=== PATIENT | male | born 1975 | race American Indian/Alaskan Native ===

== ENCOUNTER 2016-07-21 17:40 | Emergency (ER) | payer MEDICAID ==
[2016-07-21 17:59] VITALS: BP 148/79
--- NOTE | 2016-07-21 18:20 | EDM.PDOC ---
ED HPI RENAL/ - General Chief Complaint: Genitourinary Problem Stated Complaint: URINATING BLOOD Time Seen by Provider: 07/21/16 18:15 Source of Information: Reports: Patient History Limitations: Reports: No limitations - History of Present Illness INITIAL COMMENTS - FREE TEXT/NARRATIVE: Pt states that he has been having bloody urination since yesterday. States that it is a small amount that turns the toilet pink. C/o burning with urination. no other complaints of pain. Symptom Onset Date: 07/20/16 Timing/Duration: Reports: Waxing/waning Location: Reports: urethral Quality: Reports: burning Severity: moderate Worsens with: Reports: urinating Associated Symptoms: Reports: no other symptoms, burning - Related Data Allergies/ADRs: Allergies Allergy/AdvReac Type Severity Reaction Status Date / Time No Known Allergies Allergy Verified 07/21/16 18:02 Home Meds: Home Meds . [No Known Home Meds] 07/21/16 [History] Past Medical History - Past Surgical History HEENT Surgical History: Reports: Other (see below) Other HEENT Surgeries/Procedures: wisdom teeth Musculoskeletal Surgical History: Reports: Other (see below) Other Musculoskeletal Surgeries/Procedures:: right ankle fracture. jaw broken Social & Family History - Tobacco Use Smoking Status *Q: Current Every Day Smoker Years of Tobacco use: 30 Packs/Tins Daily: 1 Second Hand Smoke Exposure: Yes - Caffeine Use Caffeine Use: Reports: Energy drinks, Soda, Tea - Alcohol Use Days Per Week of Alcohol Use: 1 Number of Drinks Per Day: 20 Total Drinks Per Week: 20 - Recreational Drug Use Recreational Drug Use: Yes Recreational Drug Type: Reports: Marijuana/Hashish ED ROS GENERAL - Review of Systems Review Of Systems: See Below : Reports: dysuria, hematuria ED EXAM, RENAL/ - Physical Exam Exam: See Below Exam Limited By: No limitations General Appearance: alert, WD/WN, no apparent distress (Male) Exam: No hernia, Circumcised, Scrotum tenderness (L), Scrotum tenderness (R), Urethral discharge Course - Vital Signs Last Recorded V/S: Last Vital Signs Temp 98.4 F 07/21/16 17:56 Pulse 76 07/21/16 17:56 Resp 16 07/21/16 17:56 BP 148/79 H 07/21/16 17:56 Pulse Ox 97 07/21/16 17:56 - Orders/Labs/Meds Orders: Active Orders 24 hr Category Date Time Status CHLAMYDIA TRACHOMATIS/GC AMPLF Stat Lab 07/21/16 18:54 Ordered Labs: Laboratory Tests 07/21/16 07/21/16 Range/Units 18:00 18:00 Urine Color Light yellow (YELLOW) Urine Appearance Slightly cloudy (CLEAR) Urine pH 5.5 (5.0-9.0) Ur Specific [place] <= 1.005 (1.005-1.030) Urine Protein Negative (NEGATIVE) Urine Glucose (UA) Negative (NEGATIVE) Urine Ketones Negative (NEGATIVE) Urine Occult Blood Moderate H (NEGATIVE) Urine Nitrite Negative (NEGATIVE) Urine Bilirubin Negative (NEGATIVE) Urine Urobilinogen 0.2 (0.2-1.0) mg/dL Ur Leukocyte Esterase Negative (NEGATIVE) Urine RBC 0-5 /HPF Urine WBC Not seen (0-5/HPF) /HPF Ur Epithelial Cells Rare /HPF Urine Opiates Screen Negative (NEGATIVE) Ur Oxycodone Screen Negative (NEGATIVE) Urine Methadone Screen Negative (NEGATIVE) Ur Barbiturates Screen Negative (NEGATIVE) U Tricyclic Antidepress Negative (NEGATIVE) Ur Phencyclidine Scrn Negative (NEGATIVE) Ur Amphetamine Screen Negative (NEGATIVE) U Methamphetamines Scrn Negative (NEGATIVE) Urine MDMA Screen Negative (NEGATIVE) U Benzodiazepines Scrn Negative (NEGATIVE) Urine Cocaine Screen Negative (NEGATIVE) U Marijuana (THC) Screen Positive H (NEGATIVE) Meds: Medications Discontinued Medications Generic Name Dose Route Start Last Admin Trade Name Freq PRN Reason Stop Dose Admin Azithromycin 1,000 mg 07/21/16 18:38 07/21/16 18:52 Zithromax PO 07/21/16 18:39 1,000 mg ONETIME ONE Administration Ceftriaxone Sodium 250 mg/ 0 mg 07/21/16 18:42 07/21/16 18:53 Lidocaine HCl 0.9 ml IM 07/21/16 18:43 1 inj ONETIME ONE Administration Ibuprofen 800 mg 07/21/16 18:38 07/21/16 18:53 Motrin PO 07/21/16 18:39 800 mg ONETIME ONE Administration Departure - Departure Time of Disposition: 18:57 Disposition: Home, Self-Care 01 Condition: good Clinical Impression: Urethritis Instructions: Urethritis, Adult Forms: ED Department Discharge Additional Instructions: Take the antibiotic until gone. take motrin for the pain. follow up in clinic in 1 week if not better. return for any worsening symptoms. - My Orders Last 24 Hours: My Active Orders 07/21/16 18:54 CHLAMYDIA TRACHOMATIS/GC AMPLF Stat - Assessment/Plan Last 24 Hours: My Active Orders 07/21/16 18:54 CHLAMYDIA TRACHOMATIS/GC AMPLF Stat
[2016-07-21] MEDS ORDERED: Azithromycin 250 MG Tab PO ONE (18:38)
[2016-07-21] MEDS ORDERED: Ibuprofen 800 MG Tab PO ONE (18:38)
[2016-07-21] MEDS ORDERED: cefTRIAXone 250 MG, Lidocaine 1% 0.9 ML IM ONE ×2 (18:42)
== END 2016-07-21 19:08 | disposition home or self-care (01) ==
LOC: DL.ED 17:40
DX: N34.2 Other urethritis (principal); F17.200 Nicotine dependence, unspecified, uncomplicated; F12.90 Cannabis use, unspecified, uncomplicated; Z72.89 Other problems related to lifestyle
CPT/HCPCS: 80305; 81001; 87491; 87591; 96372; 99283; A9270; J0696